=== PATIENT | male | born 1975 | race Caucasian/White ===

== ENCOUNTER 2023-06-28 11:45 | Outpatient (AMB) | payer BC, SELFPAY ==
--- NOTE | 2023-06-28 11:53 | A.SPINEOV_ITS ---
Intake Intake Visit Reasons: Low back pain Assessment & Plan Assessment & Plan (1) Lumbar radiculopathy, right: Code(s): M54.16 - Radiculopathy, lumbar region (2) Low back pain of over 3 months duration: Code(s): M54.50 - Low back pain, unspecified Plan Dear?colleague Thank?you?for?referring?Hernandez?Saleem?to?the?office?today?with?a?chief?complaint? of?low?back?pain. HPI:? The 7-year-old male that developed acute lumbar back pain more than 3 months ago during exercising. The pain is located in the right paravertebral area of the lumbar spine. The pain radiates intermittently towards the outside of the right thigh. In the past he did have radiation all the way down towards the outside of his lower leg. He denies numbness or weakness. The pain is constant with intermittent severe flare-ups where his back locks. Lifting trays produces significant pain in that area. He tried several forms of conservative treatment including anti-inflammatory drugs, Tylenol, lifestyle modification with avoidance of exercising. He is currently in physical therapy which aggravates his symptoms. No night sweats or weight loss. PMH:? Hypertension Social?history:? , nonsmoker Medications:? Losartan Allergies:? Penicillin Physical?Exam:? Pleasant male. 6 ft 3, 235 lb. This pain on palpation in the right SI joint area. SI joint provocative tests are negative. Barger test positive. Flexion-extension restricted due to pain. Straight leg raise is negative. No neurological deficits her motor sensation or reflexes. Radiological?Studies:??No imaging is available for review Impression/Plan:? This 47-year-old male presents with severe back pain for several months not responding to conservative treatments.??He did have an episode of radicular pain down his right leg approximately 1 year ago. An MRI of the lumbar spine is indicated, which I will order. Thank?you?for?allowing?me?to?participate?in?your?patients?care.?? total?time?s pent?was?50?minutes?in?counseling?,coordination?of?plan,?personal?review?of?imag ing,?surgical?decision?making?and?subsequent?plan? Stephen?Cornell??MD,?PhD Spine?Fellowship?Trained?Neurosurgeon Director,?[facility]? [facility]? Orders: Orders MR lumbar spine wo con Today M54.16 - Radiculopathy, lumbar region, M54.50 - Low back pain, unspecified Coding Level of Care Code New Pt Level 4 (14653) Diagnoses Lumbar radiculopathy, right M54.16 Low back pain of over 3 months duration M54.50
== END 2023-06-28 12:09 | disposition home or self-care (01) ==
LOC: HO.HNS 11:45
PROVIDERS: Visit Provider Neurological Surgery
DX: M54.16 Radiculopathy, lumbar region (principal); M54.50 Low back pain, unspecified
CPT/HCPCS: 99204

== ENCOUNTER 2023-06-28 11:45 | Outpatient (REF) | payer BC, SELFPAY ==
--- NOTE | ~2023-06-28 | XR_ITS ---
EXAMINATION: XR LUMBOSACRAL SPINE CLINICAL INFORMATION: Low back pain, unspecified COMPARISON: None available. TECHNIQUE: 4 views of the lumbar spine, inclusive of flexion and extension views, were obtained. FINDINGS: The vertebral bodies and posterior elements are normal. The disc spaces are preserved and the vertebral alignment is normal. The paraspinal soft tissues are normal. There is no spondylolisthesis. There is no change in alignment with flexion and extension. XR/XR lumbar spine 4V min IMPRESSION: Unremarkable examination.
== END 2023-06-28 11:46 | disposition home or self-care (01) ==
LOC: HO.HOSX 11:45
PROVIDERS: Visit Provider Neurological Surgery
DX: M54.16 Radiculopathy, lumbar region (principal); M54.50 Low back pain, unspecified
CPT/HCPCS: 72110

== ENCOUNTER 2023-07-06 19:24 | Outpatient (REF) | payer BC, SELFPAY ==
--- NOTE | ~2023-07-06 | MR_ITS ---
EXAMINATION: MR LUMBAR SPINE WITHOUT CONTRAST CLINICAL INFORMATION: Lower back pain, right radiculopathy COMPARISON: None TECHNIQUE: MRI of the lumbar spine was obtained using routine sequences without contrast. FINDINGS: Normal anatomic alignment. No suspicious marrow signal or focal osseous lesion. L5 inferior endplate Schmorl's node with surrounding marrow edema. The vertebral body heights are maintained. Disc desiccation and height loss at L5-S1. The conus medullaris terminates at the level of L1-L2. The distal spinal cord is normal in appearance. The cauda equina nerve roots appear normal. No significant abnormalities of the paraspinal musculature. Limited evaluation of the intra-abdominal structures without significant abnormalities. The abdominal aorta is of normal contour and caliber. SPINAL LEVELS: L1-L2: No significant spinal canal or neuroforaminal narrowing. L2-L3: No significant spinal canal or neuroforaminal narrowing. L3-L4: No significant spinal canal or neuroforaminal narrowing. L4-L5: No significant spinal canal or neuroforaminal narrowing. Shallow disc bulge. Mild right subarticular zone narrowing. Mild facet arthropathy. L5-S1: No significant spinal canal or neuroforaminal narrowing. Shallow disc bulge and mild facet arthropathy. MR/MR lumbar spine wo con IMPRESSION: 1. Mild degenerative changes of the lower lumbar spine without significant spinal canal or neural foraminal narrowing. There is mild right subarticular zone narrowing at L4-L5. 2. L5 inferior endplate Schmorl's node with surrounding marrow edema.
== END 2023-07-06 19:25 | disposition home or self-care (01) ==
LOC: HO.MRI 19:24
PROVIDERS: Visit Provider Neurological Surgery
DX: M54.50 Low back pain, unspecified (principal); M54.16 Radiculopathy, lumbar region
CPT/HCPCS: 72148